=== PATIENT | female | born 1975 | race Caucasian/White ===

== ENCOUNTER 2020-04-23 12:11 | Outpatient (REF) | payer OTHER, SELFPAY ==
[2020-04-23 15:54] LABS: Alanine Aminotransferase 18 U/L (0-31); Albumin Level 4.1 g/dL (3.5-5.0); Alkaline Phosphatase 54 U/L (39-117); Anion Gap 11 (12-20); Aspartate Amino Transferase 19 U/L (5-31); Bilirubin Total 0.7 mg/dL (0.0-1.0); Blood Urea Nitrogen 16 mg/dL (9-16); Calcium 8.4 mg/dL (8.4-10.2); Carbon Dioxide 24 mmol/L (22-29); Chloride 107 mmol/L (96-108); Cholesterol 236 mg/dL; Estimated Glomerular Filt Rate > 60; Glucose Random 85 mg/dL (60-115); HDL Cholesterol 66 mg/dL; LDL Cholesterol Calculated 147 mg/dl; Sodium 137 mmol/L (135-145); Total Protein 7.3 g/dL (6.5-8.0); Triglycerides 118 mg/dL
[2020-04-23 16:11] LABS: TSH reflex Free T4 0.39 mIU/mL (0.32-4.0)
[2020-04-23 16:18] LABS: Creatinine Urine 54.79 mg/dL; Microalbumin Urine < 5.0 mg/L
[2020-04-24 09:17] LABS: LDL Cholesterol Direct 153 mg/dL (<100)
== END 2020-04-23 12:12 | disposition home or self-care (01) ==
LOC: HO.WFDLDS 12:11
PROVIDERS: Visit Provider Family Medicine
DX: Z00.00 Encounter for general adult medical examination without abnormal findings (principal); R03.0 Elevated blood-pressure reading, without diagnosis of hypertension; E78.5 Hyperlipidemia, unspecified
CPT/HCPCS: 80053; 80061; 82043; 83721; 84443

== ENCOUNTER 2020-05-25 17:11 | Outpatient (REF) | payer OTHER, SELFPAY | END 2020-05-25 17:12 | disposition home or self-care (01) | LOC: HO.LAB 17:11 | PROVIDERS: Visit Provider Internal Medicine | DX: Z20.828 Contact with and (suspected) exposure to other viral communicable diseases (principal) | CPT/HCPCS: C9803; U0003 ==

== ENCOUNTER 2020-09-02 18:13 | Outpatient (REF) | payer OTHER, SELFPAY | END 2020-09-02 18:14 | disposition home or self-care (01) | LOC: HO.LNP 18:13 | PROVIDERS: Visit Provider Family Medicine | DX: L02.91 Cutaneous abscess, unspecified (principal) | CPT/HCPCS: 87071; 87205 ==

== ENCOUNTER 2020-09-09 08:11 | Outpatient (RCR) | payer OTHER, SELFPAY | END 2020-09-15 09:45 | disposition home or self-care (01) | LOC: HO.WCC 08:11 | PROVIDERS: PCP Family Medicine; Visit Provider Surgery | DX: Z09 Encounter for follow-up examination after completed treatment for conditions other than malignant neoplasm (principal); L73.2 Hidradenitis suppurativa | CPT/HCPCS: 99212 ==

== ENCOUNTER 2020-12-14 19:02 | Outpatient (REF) | payer OTHER, SELFPAY ==
[2020-12-14 19:39] LABS: Amphetamine Screen Urine Not Detected (Not Detect); Barbiturates, Urine Not Detected (Not Detect); Benzodiazepines Screen Urine POSITIVE (Not Detect); Cannabinoid Screen Urine POSITIVE (Not Detect); Cocaine Screen Urine POSITIVE (Not Detect); Opiate Screen Urine Not Detected (Not Detect); Phencyclidine Screen Urine Not Detected (Not Detect)
== END 2020-12-14 19:03 | disposition home or self-care (01) ==
LOC: HO.LNP 19:02
PROVIDERS: Visit Provider Family Medicine
DX: F41.8 Other specified anxiety disorders (principal); G89.29 Other chronic pain; Z20.822 Contact with and (suspected) exposure to COVID-19
CPT/HCPCS: 80307; 80364; 80365; U0003; U0005

== ENCOUNTER 2021-01-05 13:27 | Outpatient (REF) | payer OTHER, SELFPAY ==
[2021-01-05 14:25] LABS: Amphetamine Screen Urine Not Detected (Not Detect); Barbiturates, Urine Not Detected (Not Detect); Benzodiazepines Screen Urine POSITIVE (Not Detect); Cannabinoid Screen Urine POSITIVE (Not Detect); Cocaine Screen Urine POSITIVE (Not Detect); Opiate Screen Urine POSITIVE (Not Detect); Phencyclidine Screen Urine Not Detected (Not Detect)
== END 2021-01-05 13:28 | disposition home or self-care (01) ==
LOC: HO.LNP 13:27
PROVIDERS: Visit Provider Family Medicine
DX: G89.29 Other chronic pain (principal)
CPT/HCPCS: 80307; 80353; 80364; 80365

== ENCOUNTER 2021-10-05 15:34 | Emergency (ER) | payer OTHER, SELFPAY ==
--- NOTE | ~2021-10-05 | XR_ITS ---
EXAMINATION: CHEST RADIOGRAPH, RIGHT ELBOW, LEFT FOOT CLINICAL INFORMATION: Fall with right elbow pain and left foot swelling COMPARISON: None TECHNIQUE: 2 view chest, 3 views right elbow, 3 views left foot FINDINGS: No significant abnormality is seen involving the heart, lungs, mediastinum or bony thorax. No bone, joint or soft tissue abnormality is seen right elbow. No significant bone, joint or soft tissue abnormality is seen involving the left foot. A plantar calcaneal spur is present. XR/XR elbow RT min 3V IMPRESSION: No significant abnormalities are seen. No evidence of a traumatic osseous injury.
--- NOTE | ~2021-10-05 | XR_ITS ---
EXAMINATION: CHEST RADIOGRAPH, RIGHT ELBOW, LEFT FOOT CLINICAL INFORMATION: Fall with right elbow pain and left foot swelling COMPARISON: None TECHNIQUE: 2 view chest, 3 views right elbow, 3 views left foot FINDINGS: No significant abnormality is seen involving the heart, lungs, mediastinum or bony thorax. No bone, joint or soft tissue abnormality is seen right elbow. No significant bone, joint or soft tissue abnormality is seen involving the left foot. A plantar calcaneal spur is present. XR/XR chest 2V IMPRESSION: No significant abnormalities are seen. No evidence of a traumatic osseous injury.
--- NOTE | ~2021-10-05 | CT_ITS ---
EXAMINATION: CT HEAD W/O IV CONTRAST CT CERVICAL SPINE W/O IV CONTRAST CLINICAL INFORMATION: History of fall with loss of consciousness. COMPARISON: MRI cervical spine from 09/04/2018. TECHNIQUE: Head - Contiguous axial imaging of the head was performed from the skull base to the vertex without the administration of intravenous contrast, and axial images are reconstructed at 2 mm and 5 mm slice thickness. Cervical spine - A volumetric, helical CT acquisition of the cervical spine was obtained without contrast; in addition to the standard set of axial images, multiplanar reformatted images were provided in the coronal and sagittal imaging planes. This CT examination was performed using dose optimization techniques as appropriate, variously including the following: *Automated exposure control *Adjustment of mA and/or kV according to patient size (this includes techniques or standardized protocols for targeted exams where dose is matched to indication/reason for exam; i.e. extremities or head) *Use of iterative reconstruction technique DLP: 1475 mGy-cm (total) FINDINGS: HEAD: No evidence of intracranial hemorrhage, major vascular territory infarction, focal mass effect or midline shift. Sanchez to white matter differentiation is preserved. The ventricles have normal size and configuration. No extra-axial fluid collections. The calvarium is intact and the mastoid air cells and middle ear cavities are clear. The temporomandibular joints are unremarkable. The visualized orbits and globes are intact. Incidentally noted is mucosal thickening of ethmoid air cells and of the partially visualized maxillary sinuses. There are frothy secretions within the right maxillary sinus. CERVICAL SPINE: The craniocervical junction is normal. The occipital condyles, dens and atlantodental articulation are intact. The vertebral body heights and alignment are maintained. No fractures in the anterior or posterior elements. No prevertebral soft tissue swelling. [id number] degenerative disc space loss, vertebral osteophyte formation and minimal retrolisthesis at C4-C5. The small posterior disc osteophyte complex at C4-C5 does not significantly narrow the central spinal canal. Mild bilateral neural foraminal stenosis is present at C4-C5. The C5-C6 disc space is maintained. Mild discovertebral degenerative change is noted at C6-C7. No spinal hematoma. The visualized lung apices and thyroid gland are unremarkable. CT/CT cervical spine wo con IMPRESSION: * No intracranial hemorrhage or other acute intracranial pathology. * No fracture or malalignment in the degenerated cervical spine.
--- NOTE | ~2021-10-05 | XR_ITS ---
EXAMINATION: CHEST RADIOGRAPH, RIGHT ELBOW, LEFT FOOT CLINICAL INFORMATION: Fall with right elbow pain and left foot swelling COMPARISON: None TECHNIQUE: 2 view chest, 3 views right elbow, 3 views left foot FINDINGS: No significant abnormality is seen involving the heart, lungs, mediastinum or bony thorax. No bone, joint or soft tissue abnormality is seen right elbow. No significant bone, joint or soft tissue abnormality is seen involving the left foot. A plantar calcaneal spur is present. XR/XR foot LT min 3V IMPRESSION: No significant abnormalities are seen. No evidence of a traumatic osseous injury.
--- NOTE | ~2021-10-05 | CT_ITS ---
EXAMINATION: CT CHEST, ABDOMEN AND PELVIS WITHOUT CONTRAST CLINICAL INFORMATION: Reason for Exam fall down stairs. Hip pain. Hip fractures? COMPARISON: No pertinent prior studies are available for comparison. TECHNIQUE: Multidetector volumetric imaging was performed from the thoracic inlet through the pubic symphysis without IV contrast. Sagittal and coronal reformatted images were obtained on the technologist's workstation. This CT examination was performed using dose optimization techniques as appropriate, variously including the following: *Automated exposure control *Adjustment of mA and/or kV according to patient size (this includes techniques or standardized protocols for targeted exams where dose is matched to indication/reason for exam; i.e. extremities or head) *Use of iterative reconstruction technique DLP: 336 mGy-cm FINDINGS: This study without contrast limits evaluation of solid organs. CHEST: Lung: A 3 mm right upper lobe subpleural lung nodule is present (30:176). The lungs are otherwise clear without focal worrisome opacity. Mediastinum: The mediastinum is normal. The central vascular structures are unremarkable. No hilar or mediastinal lymphadenopathy. Pericardium/Pleura: No significant effusion. No pleural mass or thickening. Chest Wall/Axilla: Unremarkable ABDOMEN/PELVIS: Peritoneal Space: No significant free air or free fluid identified. Liver, Gallbladder, Biliary Tree: The liver is normal in size, shape, and attenuation. No focal hepatic lesion or biliary ductal dilatation is present. The gallbladder is unremarkable with no evidence of radiopaque gallstones, gallbladder wall thickening, or obvious pericholecystic inflammatory changes. Pancreas: Unremarkable Spleen: Unremarkable Adrenal Glands: Unremarkable Kidneys and Ureters: The kidneys are normal in size, shape, and attenuation. No hydronephrosis, hydroureter, or calculi seen. No perinephric stranding. Bladder: Unremarkable Gastrointestinal Tract: The small and large bowel are unremarkable. The appendix is mildly dilated at 9 mm and contains contrast media. There is no evidence of appendicitis.. Abdominal Wall: No significant hernia is appreciated. Lymph Nodes: No lymphadenopathy. Vascular: The aorta appears normal.. The IVC appears unremarkable. PELVIC VISCERA: Unremarkable OSSEUS STRUCTURES: Mild degenerative changes are noted in the spine. No bony destructive lesions are seen. Scattered rounded sclerotic densities are seen in the pelvis consistent with bone islands. No hip or pelvic fracture is seen. CT/CT abdomen pelvis wo con IMPRESSION: No evidence of a significant traumatic injury chest, abdomen or pelvis after the patient's fall. Incidental note made of a 3 mm right upper lobe pulmonary nodule which probably needs no further follow-up. 2017 Fleischner Society Recommendations for Lung Nodule(s): Follow-Up based on size (average of long- and short-axis diameters). Use most suspicious nodule for followup. Single Solid low risk nodule < 6 mm: No routine follow-up imaging is recommended in low risk and high risk patients. These guidelines do not apply to patients younger than 35 years, immunocompromised patients, and patients with cancer. F/u in patients with significant comorbidities as clinically warranted. For lung cancer screening, adhere to Lung-RADS guidelines. Reference: Radiology. 2017 [place]; 284(1):228-243 Fleischner guidelines were followed.
[2021-10-05 17:18] VITALS: BP 182/104; PULSE 107; RESP 36; TEMP 36.4; O2SAT 96; BMI 18.6
[2021-10-05 17:35] VITALS: PULSE 99; RESP 22; O2SAT 97
[2021-10-05] MEDS: Albuterol Sulfate 90 MCG 8 GM INHALER 2 PUFF INHALE (17:35)
[2021-10-05 17:56] VITALS: BP 149/71; PULSE 86; RESP 16; TEMP 37.1; O2SAT 99
--- NOTE | 2021-10-05 18:17 | PC.NURSE ---
PT WAS GIVEN INHALER BY RESP IN TRIAGE. PT BROUGHT TO [facility] [place]. VERY SLEEPY. RESP UNLABORED. WENT TO RADIOLOGY AND IS BACK NOW. PT AWAKE AND TALKING AT THIS TIME.
--- NOTE | 2021-10-05 18:43 | ED_ITS ---
HPI - Asthma General Chief Complaint: Asthma Stated Complaint: fall/head INJ Time Seen by Provider: 10/05/21 18:22 Source: patient Mode of arrival: ambulatory Limitations: no limitations History of Present Illness HPI Narrative: 46-year-old female history of COPD oxygen dependent 2 L and hyperlipidemia presents to the ED for fall. Patient states this morning around 04:00am she was going down the stairs with slippers and she slipped and loss of footing which caused her to roll down the stairs and hit head. Patient states he did lose consciousness and then woke up herself. Patient states she had mild bleeding on posterior scalp. Patient states headache, bilateral rib pain, left foot pain, and right elbow pain. Patient states while waiting in the room she had mild asthma COPD exacerbation but it resolved after being given 8 puffs of albuterol inhaler in ED triage. Related Data Previous Rx's Medication Instructions Recorded lidocaine 5 % topical patch 1 patch TOPICAL DAILY 90 Days #30 04/23/20 (Lidoderm) ea pravastatin 20 mg tablet 20 mg PO DAILY 90 Days #90 tab 04/23/20 cephalexin 500 mg tablet 500 mg PO Q12H 10 Days #20 tab 09/02/20 miscellaneous medical supply #1 ea 09/15/20 bupropion HCl 150 mg tablet,12 hr 150 mg PO BID 90 Days #180 cap 09/30/20 sustained-release azithromycin 250 mg tablet See Rx Instructions PO .COMPLEX 5 12/14/20 (Zithromax Z-Jules) Days #6 tab Ventolin HFA 90 mcg/actuation 2 puff PO Q6H PRN 30 Days #18 g NS 01/05/21 aerosol inhaler (albuterol sulfate) clonidine HCl 0.1 mg tablet 0.1 mg PO TID 90 Days #270 tab 01/05/21 miscellaneous medical supply #1 ea 01/05/21 crutches (pair of crutches) #1 ea 04/06/21 ipratropium 0.5 mg-albuterol 3 mg 3 ml INHALATION Q4-6H PRN 30 Days 04/06/21 (2.5 mg base)/3 mL nebulization #180 ml soln diphenhydramine HCl 50 mg capsule 50 mg PO Q6H PRN #120 cap 05/09/21 ibuprofen 800 mg tablet (IBU) 800 mg PO TID PRN 90 Days #270 tab 05/09/21 topiramate 100 mg tablet 100 mg PO BID 90 Days #180 tab 05/09/21 fluticasone propionate 50 1 inh PO Q12H #180 cap 07/13/21 mcg/actuation blister powder for inhalation (Flovent Diskus) naproxen 500 mg tablet 500 mg PO BID PRN 10 Days #20 tab 10/05/21 prednisone 20 mg tablet 40 mg PO DAILY 5 Days #10 tab 10/05/21 Allergies Allergy/AdvReac Type Severity Reaction Status Date / Time seafood Allergy Unknown difficulty Verified 10/05/21 17:28 breathing SEASONAL ALLERGIES Allergy Unknown ITCHY EYES Uncoded 03/11/20 16:48 Review of Systems Review of Systems: Phone. Loss of consciousness. Right elbow, left foot, and bilateral rib pain. Yes all other systems are reviewed and are negative [facility] Past Medical History Medical History (Updated 10/06/21 @ 00:02 by Rony Santana) Asthma Asthma Surgical History History of carpal tunnel release History of hernia repair History of rotator cuff surgery History of shoulder surgery Family History Family History Father Diabetes mellitus Unknown family medical history Mother Unknown family medical history HTN (hypertension) Brother No problems noted. Brother No problems noted. Brother No problems noted. Daughter No problems noted. Sister No problems noted. Sister No problems noted. Sister No problems noted. Sister No problems noted. Sister No problems noted. Other Mental health disorder Substance abuse Social History Social History Housing: Other Alcohol intake: current Alcohol intake frequency: holidays/special occasions only Patient Tobacco Use Status: Never used Tobacco Advance Directives: No Advance Directives Information Provided: No service: No Current occupational status: employed Physical Exam Vital Signs: Vital Signs: Last Vital Signs Temp 98.2 F 10/05/21 21:13 Pulse 86 10/05/21 23:15 Resp 18 10/05/21 23:15 BP 135/65 10/05/21 21:13 Pulse Ox 97 10/05/21 21:13 BMI result Body Mass Index 18.6 Const: General: cooperative, healthy appearing, comfortable, no acute distress, well developed, alert, awake and Physically active Orie ntation/consciousness: patient oriented x3 HEENT: Head: Yes normal to inspection, Yes No palpable skull fracture present, Yes normocephalic and Yes atraumatic Head images: 1. Positive for abrasion. Negative for any active bleeding. Eyes: General: appearance normal, both eyes and all related structures Neck: Neck: Yes normal visual inspection, Yes full ROM, Yes no lymphadenopathy, Yes no meningeal signs, Yes trachea midline, Yes supple, No anterior neck swelling and No tender Chest: Chest palpation & inspection: normal inspection of the chest Chest/axillae images: 1. Positive for tenderness on palpation. Negative for any ecchymosis, crepitus, or deformity. Negative for any erythema. 2. Positive for tenderness on palpation. Negative for any ecchymosis, crepitus, or deformity. Negative for any erythema. Resp: Effort & Inspection: normal respiratory effort and able to speak in complete sentences Auscultation: wheezes expiratory wheezes and throughout Cardio: Jugular venous distension: no JVD Heart sounds: S1 normal heart sound present and S2 normal heart sound present GI: Inspection: Yes normal to inspection and No abdominal wall ecchymosis Palpation (GI): Soft to palpation, not firm, nontender, no guarding and not rigid : General: No CVA tenderness and Yes no CVA tenderness Back/Spine/Pelvis: Back: no CVA tenderness, No CVA tenderness, No ecchymosis and No back tenderness Skin: General skin exam: no rashes or lesions noted and elasticity normal Neuro: General: patient oriented x3, gait normal and no meningeal signs Cranial nerves: Yes CN's II-XII intact bilaterally Extrem: General: Yes normal to inspection and Yes full ROM Elbow/forearm/wrist images: 1. Mild tenderness on palpation. Negative for any ecchymosis, erythema, deformity, or crepitus. Motor/nose/vascular exam intact Ankle/foot/toe images: 1. Tenderness on palpation with slight swelling. Mild ecchymosis. Negative for deformity or crepitus. Patient has complete range of motion of foot. Motor/neuro/vascular exam intact Psych: Appearance: grossly normal, well kempt and not disheveled Course Course Course Narrative: Patient had x-rays initially ordered in triage. Will order head CT cervical spine due to patient stating hitting head and loss of consciousness. Patient no longer wants any nebulizer treatment. Patient states breathing feels better and would like steroids. Patient vital signs improved. Reevaluation(s) Reevaluation #1: Patient images are normal. Patient feels better after receiving MDI albuterol 8 puffs and steroids. Patient will be discharged back home by ambulance due to her being C O2 dependent on 2 L. patient walked on her own. Time: 21:59 MDM - Asthma MDM Narrative Medical decision making narrative: Fall. Asthma exacerbation Discharge Plan Discharge Clinical Impression: Head injury, Fall, Asthma Patient Disposition: Home, Self-Care Instructions: Asthma (DC), Head Injury (ED), Contusion in Adults (ED), Fall Prevention (ED) Additional Instructions: Images came back normal. Will be discharged with pain medication and steroids. Return to the ED for any nausea, vomiting, worsening headache, chest pain, shortness of breath, rectal bleeding, vomiting blood, blood in stool, blood in urine, pain in extremities, swelling, or any other concerning symptoms. Prescriptions: New naproxen 500 mg tablet 500 mg PO BID PRN (Reason: pain) 10 Days Qty: 20 0RF prednisone 20 mg tablet 40 mg PO DAILY 5 Days Qty: 10 0RF No Action pravastatin 20 mg tablet 20 mg PO DAILY 90 Days Qty: 90 4RF lidocaine [Lidoderm] 5 % adhesive patch,medicated 1 patch topical DAILY 90 Days Qty: 30 4RF Rx Instructions: leave on most painful area for up to 12 hrs (DME) miscellaneous medical supply [facility] [place], [place] See Rx Instructions .ROUTE .MEDSUPPLY Qty: 1 0RF Rx Instructions: Shower bar/hand rail. As directed, daily, 999days/life time. bupropion HCl 150 mg tablet sustained-release 12 hr 150 mg PO BID 90 Days Qty: 180 1RF (DME) pair of crutches Kit See Rx Instructions .ROUTE .MEDSUPPLY Qty: 1 0RF Rx Instructions: Forearm Crutches. Daily, As directed. 999 days. 1 Pair topiramate 100 mg tablet 100 mg PO BID 90 Days Qty: 180 4RF diphenhydramine HCl 50 mg capsule 50 mg PO Q6H PRN (Reason: for allergies) Qty: 120 1RF ibuprofen [IBU] 800 mg tablet 800 mg PO TID PRN (Reason: pain) 90 Days Qty: 270 4RF Flovent Diskus 50 mcg/actuation blister with device 1 inh PO Q12H Qty: 180 1RF cephalexin 500 mg tablet 500 mg PO Q12H 10 Days Qty: 20 0RF (DME) miscellaneous medical supply Misc See Rx Instructions .ROUTE .MEDSUPPLY Qty: 1 0RF Rx Instructions: Arm Crutches. Daily As directed, 999days/lifetime. Dispense 1 pair clonidine HCl 0.1 mg tablet 0.1 mg PO TID 90 Days Qty: 270 4RF albuterol sulfate [Ventolin HFA] 90 mcg/actuation HFA aerosol inhaler 2 puff PO Q6H PRN (Reason: shortness of breath or wheezing) 30 Days Qty: 18 4RF azithromycin [Zithromax Z-Jules] 250 mg tablet See Rx Instructions PO .COMPLEX 5 Days Qty: 6 0RF Rx Instructions: take 500 mg today (day 1), then 250 mg for 4 days (days 2-5) PO ipratropium-albuterol 0.5 mg-3 mg(2.5 mg base)/3 mL solution for nebulization 3 ml inhalation Q4-6H PRN (Reason: for dyspnea) 30 Days Qty: 180 4RF Interventions: ED Discharge Assessment Last Done: 10/05/21 23:54 Discharge Date/Time: 10/05/21 23:57 Print Language: Australian
[2021-10-05] MEDS: predniSONE 20 MG TABLET 60 MG PO (19:21)
--- NOTE | 2021-10-05 19:24 | PC.NURSE ---
med with prednisone as ordered.pt remains sleepy but easily aroused by voice.
[2021-10-05 19:55] VITALS: BP 148/84; PULSE 78; RESP 17; TEMP 36.6; O2SAT 98
[2021-10-05 21:13] VITALS: BP 135/65; PULSE 83; RESP 16; TEMP 36.8; O2SAT 97
[2021-10-05] MEDS: Ibuprofen 800 MG TABLET PO (22:56)
[2021-10-05] MEDS: guaiFENesin 200 MG/10 ML 10 ML LIQUID PO (22:57)
[2021-10-05 23:15] VITALS: PULSE 86; RESP 18; O2SAT 97
[2021-10-05] MEDS: Albuterol/Iprat 2.5/0.5MG 3 ML AMPUL.NEB INHALE (23:15)
== END 2021-10-05 23:57 | disposition home or self-care (01) ==
PROVIDERS: Emergency Provider Emergency Medicine; PCP Family Medicine
DX: J44.1 Chronic obstructive pulmonary disease with (acute) exacerbation (principal); Z99.81 Dependence on supplemental oxygen; R51.9 Headache, unspecified; M79.672 Pain in left foot; M54.2 Cervicalgia; M25.521 Pain in right elbow; M54.50 Low back pain, unspecified; Z79.899 Other long term (current) drug therapy
CPT/HCPCS: 70450; 71046; 71250; 72125; 73080; 73630; 74176; 94640; 99284; 99285

== ENCOUNTER 2021-11-23 21:58 | Emergency (ER) | payer OTHER, SELFPAY ==
--- NOTE | ~2021-11-23 | CT_ITS ---
EXAMINATION: CT ABDOMEN AND PELVIS WITHOUT CONTRAST CLINICAL INFORMATION: Epigastric and left lower quadrant pain COMPARISON: 10/05/2021 TECHNIQUE: Multidetector volumetric imaging was performed from the superior aspect of the liver through the pubic symphysis. Sagittal and coronal reformatted images were obtained on the technologist's workstation. This CT examination was performed using dose optimization techniques as appropriate, variously including the following: *Automated exposure control *Adjustment of mA and/or kV according to patient size (this includes techniques or standardized protocols for targeted exams where dose is matched to indication/reason for exam; i.e. extremities or head) *Use of iterative reconstruction technique DLP: 380 mGy-cm FINDINGS: LUNG BASES: The visualized lung bases are unremarkable. LIVER, GALLBLADDER, AND BILIARY TREE: The liver is normal in size, shape, and attenuation. Focal hypoattenuation near the falciform ligament suggests focal fatty infiltration. No biliary ductal dilatation is present. The gallbladder is unremarkable with no evidence of radiopaque gallstones, gallbladder wall thickening, or obvious pericholecystic inflammatory changes. PANCREAS: Unremarkable. SPLEEN: Unremarkable. ADRENAL GLANDS: Unremarkable. KIDNEYS AND URETERS: The kidneys are normal in size, shape, and attenuation. No hydronephrosis, hydroureter, or calculi seen. No perinephric stranding. BLADDER: Unremarkable. GASTROINTESTINAL TRACT: No evidence of bowel obstruction. Sigmoid colon diverticulosis is noted. No significant bowel wall thickening is seen. Dilated appendix is again noted to approximately 9 mm, containing hyperdense material similar to prior; appreciable associated inflammatory change. No free fluid or free air is seen. ABDOMINAL WALL: No significant hernia is appreciated. LYMPH NODES: No lymphadenopathy is seen, though assessment is limited in the absence of intravenous contrast. VASCULAR: Unremarkable. PELVIC VISCERA: Unremarkable. OSSEOUS STRUCTURES: There is degenerative disc disease at L5-S1. CT/CT abdomen pelvis wo con IMPRESSION: No acute findings identified in the abdomen/pelvis. Dilated, hyperdense appendix again noted without appreciable surrounding inflammation, similar to prior.
[2021-11-23 22:20] VITALS: BP 139/73; PULSE 74; RESP 18; TEMP 37; O2SAT 100; BMI 22.4
[2021-11-23] MEDS: Ondansetron ODT 4 MG TAB.RAPDIS TRANSLINGU (22:29)
[2021-11-23 23:09] LABS: MANUAL DIFF FLAG NO
[2021-11-23 23:11] LABS: Basophils Absolute Auto 0.1 X10*3/uL (0.0-0.2); Basophils Percent Auto 0.8 % (0-2); Eosinophils Absolute Auto 0.3 X10*3/uL (0.0-0.4); Eosinophils Percent Auto 3.2 % (0-4); Hematocrit 40.5 % (37.0-47.0); Hemoglobin 13.3 g/dl (12.0-16.0); Imm Gran Abs Auto 0.01 X10*3/uL (0.00-0.03); Imm Gran Pct Auto 0.1 % (0.0-0.4); Lymphocytes Absolute Auto 1.8 X10*3/uL (1.2-4.9); Lymphocytes Percent Auto 19.4 % (20-40); Mean Corpuscular HGB Conc 32.8 g/dl (31.0-35.0); Mean Corpuscular Hemoglobin 30.1 pg (27.0-33.0); Mean Corpuscular Volume 91.6 fL (80.0-98.0); Mean Platelet Volume 10.5 fL (9.4-12.3); Monocytes Absolute Auto 0.5 X10*3/uL (0.1-1.2); Monocytes Percent Auto 5.8 % (2-11); Neutrophils Absolute Auto 6.5 x10*3/uL (2.0-8.3); Neutrophils Percent Auto 70.7 % (45-73); Platelet Count 307 X10*3/uL (160-400); Red Blood Count 4.42 X10*6/uL (4.20-5.50); Red Cell Distribution Width 15.1 % (11.0-16.0); White Blood Count 9.1 X10*3/uL (4.8-10.8)
--- NOTE | 2021-11-23 23:22 | ED_ITS ---
HPI - Abdominal Pain General Chief Complaint: Abdominal Pain <SUHA Serna Last Filed: 11/24/21 02:36> Stated Complaint: ? food poisoning,vomiting <SUHA Serna Last Filed: 11/24/21 02:36> Time Seen by Provider: 11/23/21 23:03 <SUHA Serna Last Filed: 11/24/21 02:36> Source: patient <SUHA Serna Last Filed: 11/24/21 02:36> Mode of arrival: ambulatory <SUHA Serna Last Filed: 11/24/21 02:36> Limitations: no limitations <SUHA Serna Last Filed: 11/24/21 02:36> History of Present Illness HPI narrative: 46-year-old female history of PTSD, hyperlipidemia, depression presents the emergency department with complaints of nausea, vomiting and epigastric pain x1 day status post eating moldy bread. Patient tells me that she has had 5 episodes of vomiting since she ate this bread. She reports discomfort in the epigastric region that is intermittent in nature, described as a burning sensati on. Patient tells me that the pain it stays in her epigastric region, no radiation. She tells me that they gave her Zofran and she is feeling much better. Patient denies fevers, chills, chest pain, shortness of breath, hematemesis, diarrhea, changes in urination, back pain, changes in bowel habits <SUHA Serna Last Filed: 11/24/21 02:36> MD elicited complaint: abdominal pain <SUHA Serna Last Filed: 11/24/21 02:36> Pertinent past history: none <SUHA Serna Last Filed: 11/24/21 02:36> Onset (ago): day(s) (1) <SUHA Serna Last Filed: 11/24/21 02:36> Pain Consistency: intermittent <SUHA Serna Last Filed: 11/24/21 02:36> Location: epigastric <SUHA Serna Last Filed: 11/24/21 02:36> Severity: moderate <SUHA Serna Last Filed: 11/24/21 02:36> Quality: burning <SUHA Serna Last Filed: 11/24/21 02:36> Radiation: none <SUHA Serna Last Filed: 11/24/21 02:36> Migration to: no migration <SUHA Serna Last Filed: 11/24/21 02:36> Exacerbating factors: nothing <SUHA Serna Last Filed: 11/24/21 02:36> Relieving factors: nothing <SUHA Serna Last Filed: 11/24/21 02:36> Associated symptoms: nausea and vomiting <SUHA Serna Last Filed: 11/24/21 02:36> Related Data Home Medications: Previous Rx's Medication Instructions Recorded lidocaine 5 % topical patch 1 patch TOPICAL DAILY 90 Days #30 04/23/20 (Lidoderm) ea pravastatin 20 mg tablet 20 mg PO DAILY 90 Days #90 tab 04/23/20 cephalexin 500 mg tablet 500 mg PO Q12H 10 Days #20 tab 09/02/20 miscellaneous medical supply #1 ea 09/15/20 bupropion HCl 150 mg tablet,12 hr 150 mg PO BID 90 Days #180 cap 09/30/20 sustained-release azithromycin 250 mg tablet See Rx Instructions PO .COMPLEX 5 12/14/20 (Zithromax Z-Jules) Days #6 tab Ventolin HFA 90 mcg/actuation 2 puff PO Q6H PRN 30 Days #18 g NS 01/05/21 aerosol inhaler (albuterol sulfate) clonidine HCl 0.1 mg tablet 0.1 mg PO TID 90 Days #270 tab 01/05/21 miscellaneous medical supply #1 ea 01/05/21 crutches (pair of crutches) #1 ea 04/06/21 ipratropium 0.5 mg-albuterol 3 mg 3 ml INHALATION Q4-6H PRN 30 Days 04/06/21 (2.5 mg base)/3 mL nebulization #180 ml soln diphenhydramine HCl 50 mg capsule 50 mg PO Q6H PRN #120 cap 05/09/21 ibuprofen 800 mg tablet (IBU) 800 mg PO TID PRN 90 Days #270 tab 05/09/21 topiramate 100 mg tablet 100 mg PO BID 90 Days #180 tab 05/09/21 fluticasone propionate 50 1 inh PO Q12H #180 cap 07/13/21 mcg/actuation blister powder for inhalation (Flovent Diskus) naproxen 500 mg tablet 500 mg PO BID PRN 10 Days #20 tab 10/05/21 prednisone 20 mg tablet 40 mg PO DAILY 5 Days #10 tab 10/05/21 ondansetron 4 mg disintegrating 4 mg PO ONCE PRN #10 tab 11/23/21 tablet <SUHA Serna Last Filed: 11/24/21 02:36> Allergies/Adverse Reactions: Allergies Allergy/AdvReac Type Severity Reaction Status Date / Time seafood Allergy Unknown difficulty Verified 10/05/21 17:28 breathing SEASONAL ALLERGIES Allergy Unknown ITCHY EYES Uncoded 03/11/20 16:48 <SUHA Serna Last Filed: 11/24/21 02:36> Review of Systems Review of Systems Constitutional : No Weight loss, No Fever, No Chills, No Fatigue, No Malaise ENT/Mouth : No sore throat, No Rhinorrhea Eyes: No Eye Pain, No Swelling, No Redness Cardiovascular : No Chest Pain, No SOB, No Dyspnea on Exertion, No Orthopnea, No Edema, No Palpitations Respiratory : No Cough, No Sputum, No Wheezing Gastrointestinal : + Nausea, + Vomiting, No Diarrhea, No Constipation, + abdominal Pain, No Hematochezia, No Melena Genitourinary : No Dysuria, No Urinary Frequency, No Hematuria, Musculoskeletal : No joint pain, No Myalgias, No Joint Swelling Skin : No Skin Lesions, No rash Neuro : No Weakness, No Numbness, No Dizziness, No Headache Psych : No Anxiety/Panic, No Depression All other systems reviewed and are negative <SUHA Serna Last Filed: 11/24/21 02:36> Yes all other systems are reviewed and are negative <SUHA Serna Last Filed: 11/24/21 02:36> [facility] Past Medical History Attestation statement: The following information was validated with the patient. <SUHA Serna - Last Filed: 11/24/21 02:36> Source: old records reviewed and nursing notes reviewed <SUHA Serna - Last Filed: 11/24/21 02:36> Medical History: Medical History Asthma Asthma <SUHA Serna - Last Filed: 11/24/21 02:36> Surgical History: Surgical History History of carpal tunnel release History of hernia repair History of rotator cuff surgery History of shoulder surgery <SUHA Serna - Last Filed: 11/24/21 02:36> Family History Family History: Family History Father Diabetes mellitus Unknown family medical history Mother Unknown family medical history HTN (hypertension) Brother No problems noted. Brother No problems noted. Brother No problems noted. Daughter No problems noted. Sister No problems noted. Sister No problems noted. Sister No problems noted. Sister No problems noted. Sister No problems noted. Other Mental health disorder Substance abuse <SUHA Serna - Last Filed: 11/24/21 02:36> Social History Social History: Social History Housing: Other Alcohol intake: never Patient Tobacco Use Status: Never used Tobacco Use of substances other than those prescribed or required for medical reasons: Yes Substance Use Type: Opiates Substance Use Frequency: Chronic Longstanding Advance Directives: No Advance Directives Information Provided: No Patient : No service: No Current occupational status: employed <SUHA Serna - Last Filed: 11/24/21 02:36> Physical Exam ED Vital Signs: Vital Signs - 24 hr 11/23/21 22:20 11/24/21 02:44 Temperature 98.6 F Pulse Rate 74 82 Respiratory Rate 18 18 Blood Pressure 139/73 132/78 Pulse Oximetry 100 99 BMI result Body Mass Index 22.4 vss <SUHA Serna Last Filed: 11/24/21 02:36> Appearance: Alert.? Oriented X3.? No acute distress.? Head: Normocephalic, atraumatic, no step-offs or deformities Eyes: Pupils equal, round and reactive to light.? ENT: Pharynx normal.? Neck: Normal inspection.? Neck supple.? CVS: Normal heart rate and rhythm.? Pulses normal.? Respiratory: No respiratory distress.? Breath sounds normal.? Abdomen: Soft and nontender.? Normoactive bowel sounds Skin: Skin warm and dry.? Normal skin color.? Normal skin turgor.? Extremities: No lower extremity edema.? No calf ttp. 5/5 strength to bilateral upper and lower extremities Back: No midline tenderness, no C-spine tenderness, full range of motion, no CVA tenderness bilaterally Neuro: Oriented X 3.? No motor deficit.? No sensory deficit. CN 2-12 intact <SUHA Serna Last Filed: 11/24/21 02:36> Course Reevaluation(s) Reevaluation #1: CBC within normal limits. Chemistry with no acute findings. Lipase within normal limits unlikely pancreatitis. Patient now complaining of severe abdominal pain, on repeat exam she is tender to the left lower quadrant will rule out diverticulitis with CT of the abdomen and pelvis. This patient was evaluated during a time of global shortage of iodinated contrast media. Based on guidance from the [employer], best practices, and local institutional approaches an alternative path for evaluating and managing the patient may have been employed in order to provide optimal care during this shortage. The current situation has been discussed with the patient. <SUHA Serna Last Filed: 11/24/21 02:36> Time: 00:56 <SUHA Serna Last Filed: 11/24/21 02:36> Reevaluation #2: CT of abdomen and pelvis with No acute findings identified in the abdomen/pelvis. Dilated, hyperdense appendix again noted without appreciable surrounding inflammation, similar to prior. Upon examination patient's pain is to the left lower quadrant, no pain to the right lower quadrant with palpation. At this time very low suspicion for appendicitis. Patient's pain likely secondary to vomiting. Plan at this time is to discharge patient home with strict return precautions. Tolerating p.o. solids and fluids. At this time I feel comfortable discharge home will give her GI information if needed. Comfortable discharge stable vitals patient appears well no acute distress patient is subsided after Toradol and fluids. <SUHA Serna - Last Filed: 11/24/21 02:36> Time: 02:33 <SUHA Serna - Last Filed: 11/24/21 02:36> MDM - Abdominal Pain MDM Narrative Medical decision making narrative: 2300 46-year-old female presents with nausea, vomiting epigastric discomfort x1 day status post eating multi toast. Physical examination benign. Patient's abdomen is soft, nontender nondistended with normoactive bowel sounds. Negative Chin's, Rovsing, obturator, psoas, McBurney's point. Lungs clear. Regular rate and rhythm. Neuro exam is nonfocal. Vital signs stable. No peritoneal signs, no signs of acute abdomen. Based off history and physical examination unlikely cholecystitis or appendicitis. Likely food poisoning. Plan at this time is basic labs, urine. No need for imaging at this time is patient has a soft non tender nondistended abdomen. Will give patient a GI cocktail. <SUHA Serna - Last Filed: 11/24/21 02:36> Medical Records Attestation: I reviewed the patient's medical records. <SUHA Serna - Last Filed: 11/24/21 02:36> Lab Data Attestation: I reviewed the patient's lab results. <SUHA Serna Last Filed: 11/24/21 02:36> Result diagrams: : 11/23/21 23:02 11/23/21 23:02 <SUHA Serna Last Filed: 11/24/21 02:36> Labs: Lab Results 11/23/21 11/23/21 Range/Units 23:02 23:02 WBC 9.1 (4.8-10.8) X10*3/uL RBC 4.42 (4.20-5.50) X10*6/uL Hgb 13.3 (12.0-16.0) g/dl Hct 40.5 (37.0-47.0) % MCV 91.6 (80.0-98.0) fL MCH 30.1 (27.0-33.0) pg MCHC 32.8 (31.0-35.0) g/dl RDW 15.1 (11.0-16.0) % Plt Count 307 (160-400) X10*3/uL MPV 10.5 (9.4-12.3) fL Immature Gran % (Auto) 0.1 (0.0-0.4) % Neut % (Auto) 70.7 (45-73) % Lymph % (Auto) 19.4 L (20-40) % [place] % (Auto) 5.8 (2-11) % Eos % (Auto) 3.2 (0-4) % Baso % (Auto) 0.8 (0-2) % Lymph # (Auto) 1.8 (1.2-4.9) X10*3/uL [place] # (Auto) 0.5 (0.1-1.2) X10*3/uL Eos # (Auto) 0.3 (0.0-0.4) X10*3/uL Baso # (Auto) 0.1 (0.0-0.2) X10*3/uL Abs Immat Gran (auto) 0.01 (0.00-0.03) X10*3/uL Absolute Neuts (auto) 6.5 (2.0-8.3) x10*3/uL Absolute Nucleated RBC 0.000 (0.0-0.012) X10*3/uL Nucleated RBC % (auto) 0.0 (0.0-0.2) /100WBC Sodium 141 (135-145) mmol/L Potassium 3.7 (3.3-5.1) mmol/L Chloride 105 (96-108) mmol/L Carbon Dioxide 27 (22-29) mmol/L Anion Gap 13 (12-20) BUN 17 H (9-16) mg/dL Creatinine 0.79 (0.5-1.4) mg/dL Estim Creat Clear Calc 64.5 Estimated GFR > 60 Random Glucose 94 (60-115) mg/dL Calcium 10.0 D (8.4-10.2) mg/dL Total Bilirubin 0.5 (0.0-1.0) mg/dL Direct Bilirubin 0.2 (0.0-0.5) mg/dL AST 20 (5-31) U/L ALT 18 (0-31) U/L Alkaline Phosphatase 61 (39-117) U/L Total Protein 7.7 (6.5-8.0) g/dL Albumin 4.5 (3.5-5.0) g/dL Lipase 21 (8-78) U/L <SUHA Serna Last Filed: 11/24/21 02:36> Critical Care Time Critical Care Time Critical Care Time: No <SUHA Serna Last Filed: 11/24/21 02:36> Discharge Plan Discharge Clinical Impression: Abdominal pain, Nausea & vomiting <SUHA Serna Last Filed: 11/24/21 02:36> Patient Disposition: Home, Self-Care <SUHA Serna Last Filed: 11/24/21 02:36> Instructions: Acute Nausea and Vomiting (ED), Abdominal Pain (ED) <SUHA Serna Last Filed: 11/24/21 02:36> Additional Instructions: Take your medications as prescribed. If you were prescribed antibiotics today, it is important that you take your medication to their entirety, do not skip any doses, do not finish them early. Follow-up with your primary care provider this week. If pain persists follow-up with gastroenterology. Return to the emergency department with new or worsening symptoms. Such as fevers, chills, chest pain, shortness of breath, nausea, vomiting, dizziness, headache, vision changes, lethargy In case of emergency call 911 Please be advised that you were seen during a time of global shortage of iodina lucrecia contrast media. This means an alternative approach to your diagnosis and treatment may have been employed in order to provide optimal care during the shortage. If you have any worsening symptoms, please go to the nearest emergency department or call [address]/CT abdomen pelvis wo con IMPRESSION: No acute findings identified in the abdomen/pelvis. Dilated, hyperdense appendix again noted without appreciable surrounding inflammation, similar to prior. <SUHA Serna Last Filed: 11/24/21 02:36> Prescriptions: New ondansetron 4 mg tablet,disintegrating 4 mg PO ONCE PRN (Reason: nausea and vomiting) Qty: 10 0RF No Action pravastatin 20 mg tablet 20 mg PO DAILY 90 Days Qty: 90 4RF lidocaine [Lidoderm] 5 % adhesive patch,medicated 1 patch topical DAILY 90 Days Qty: 30 4RF Rx Instructions: leave on most painful area for up to 12 hrs (DME) miscellaneous medical supply [facility] See Rx Instructions .ROUTE .MEDSUPPLY Qty: 1 0RF Rx Instructions: Shower bar/hand rail. As directed, daily, 999days/life time. bupropion HCl 150 mg tablet sustained-release 12 hr 150 mg PO BID 90 Days Qty: 180 1RF (DME) pair of crutches Kit See Rx Instructions .ROUTE .MEDSUPPLY Qty: 1 0RF Rx Instructions: Forearm Crutches. Daily, As directed. 999 days. 1 Pair topiramate 100 mg tablet 100 mg PO BID 90 Days Qty: 180 4RF diphenhydramine HCl 50 mg capsule 50 mg PO Q6H PRN (Reason: for allergies) Qty: 120 1RF ibuprofen [IBU] 800 mg tablet 800 mg PO TID PRN (Reason: pain) 90 Days Qty: 270 4RF Flovent Diskus 50 mcg/actuation blister with device 1 inh PO Q12H Qty: 180 1RF naproxen 500 mg tablet 500 mg PO BID PRN (Reason: pain) 10 Days Qty: 20 0RF prednisone 20 mg tablet 40 mg PO DAILY 5 Days Qty: 10 0RF cephalexin 500 mg tablet 500 mg PO Q12H 10 Days Qty: 20 0RF (DME) miscellaneous medical supply [facility] See Rx Instructions .ROUTE .MEDSUPPLY Qty: 1 0RF Rx Instructions: Arm Crutches. Daily As directed, 999days/lifetime. Dispense 1 pair clonidine HCl 0.1 mg tablet 0.1 mg PO TID 90 Days Qty: 270 4RF albuterol sulfate [Ventolin HFA] 90 mcg/actuation HFA aerosol inhaler 2 puff PO Q6H PRN (Reason: shortness of breath or wheezing) 30 Days Qty: 18 4RF azithromycin [Zithromax Z-Jules] 250 mg tablet See Rx Instructions PO .COMPLEX 5 Days Qty: 6 0RF Rx Instructions: take 500 mg today (day 1), then 250 mg for 4 days (days 2-5) PO ipratropium-albuterol 0.5 mg-3 mg(2.5 mg base)/3 mL solution for nebulization 3 ml inhalation Q4-6H PRN (Reason: for dyspnea) 30 Days Qty: 180 4RF <SUHA Serna - Last Filed: 11/24/21 02:36> Referrals: Omer Miguel [Physician] - 1 week <SUHA Serna - Last Filed: 11/24/21 02:36> Stand Alone Forms: Work/School Release <SUHA Serna - Last Filed: 11/24/21 02:36> Interventions: ED Discharge Assessment Last Done: 11/24/21 03:01 <SUHA Serna - Last Filed: 11/24/21 02:36> Discharge Date/Time: 11/24/21 03:03 <SUHA Serna - Last Filed: 11/24/21 02:36>
[2021-11-23] MEDS: PHENobarb/Hyoscy/Atropine/Scop 10 ML ELIXIR PO (23:28)
[2021-11-23] MEDS: Magnesium Hydrox/Alum Hydrox 30 ML ORAL.SUSP PO (23:28)
[2021-11-23 23:34] LABS: Alanine Aminotransferase 18 U/L (0-31); Albumin Level 4.5 g/dL (3.5-5.0); Alkaline Phosphatase 61 U/L (39-117); Anion Gap 13 (12-20); Aspartate Amino Transferase 20 U/L (5-31); Bilirubin Direct 0.2 mg/dL (0.0-0.5); Bilirubin Total 0.5 mg/dL (0.0-1.0); Blood Urea Nitrogen 17 mg/dL (9-16); Carbon Dioxide 27 mmol/L (22-29); Chloride 105 mmol/L (96-108); Creatinine Clr Calc Pharmacy 64.5; Estimated Glomerular Filt Rate > 60; Glucose Random 94 mg/dL (60-115); Lipase 21 U/L (8-78); Potassium 3.7 mmol/L (3.3-5.1); Sodium 141 mmol/L (135-145)
[2021-11-23 23:53] LABS: Total Protein 7.7 g/dL (6.5-8.0)
[2021-11-24] MEDS: Ketorolac Tromethamine 15 MG/ML VIAL 30 MG IVPUSH (00:24)
[2021-11-24 02:44] VITALS: BP 132/78; PULSE 82; RESP 18; O2SAT 99
== END 2021-11-24 03:03 | disposition home or self-care (01) ==
PROVIDERS: Physician Assistant; Emergency Provider Emergency Medicine; PCP Family Medicine
DX: R10.32 Left lower quadrant pain (principal); R11.2 Nausea with vomiting, unspecified; J45.909 Unspecified asthma, uncomplicated
CPT/HCPCS: 36415; 74176; 80053; 82248; 83690; 85025; 96374; 99284; J1885

== ENCOUNTER 2022-03-14 12:52 | Outpatient (REF) | payer OTHER, SELFPAY ==
[2022-03-15 14:59] LABS: Amphetamine Screen Urine Not Detected (Not Detect); Barbiturates, Urine Not Detected (Not Detect); Benzodiazepines Screen Urine Not Detected (Not Detect); Cannabinoid Screen Urine POSITIVE (Not Detect); Cocaine Screen Urine Not Detected (Not Detect); Fentanyl, urine Not Detected (Not Detect); Opiate Screen Urine Not Detected (Not Detect); Phencyclidine Screen Urine Not Detected (Not Detect)
== END 2022-03-14 12:53 | disposition home or self-care (01) ==
LOC: HO.LNP 12:52
PROVIDERS: Visit Provider Hospitalist
DX: F14.11 Cocaine abuse, in remission (principal)
CPT/HCPCS: 80307

== ENCOUNTER 2022-10-01 23:51 | Emergency (ER) | payer OTHER, SELFPAY ==
--- NOTE | ~2022-10-01 | XR_ITS ---
EXAMINATION: XR CHEST CLINICAL INFORMATION: Shortness of breath. COMPARISON: Chest radiograph 10/05/2021. TECHNIQUE: 2 views of the chest were obtained. FINDINGS: No significant abnormality is noted involving the heart, lungs, mediastinum, bony thorax or soft tissues. XR/XR chest 2V IMPRESSION: Unremarkable examination.
[2022-10-02 00:02] VITALS: BP 140/100; BP 169/87; PULSE 66; PULSE 74; RESP 12; TEMP 36.9; O2SAT 100; O2SAT 99; BMI 25.2
[2022-10-02 00:11] VITALS: BP 169/87; PULSE 66; RESP 12; TEMP 36.9; O2SAT 99
--- NOTE | 2022-10-02 00:14 | PC.NURSE ---
pt states h/o htn as well and has not taken bp medication yet today
--- NOTE | 2022-10-02 00:30 | ECG_ITS ---
Test Reason : SOB Blood Pressure : / mmHG Vent. Rate : 070 BPM Atrial Rate : 070 BPM P-R Int : 124 ms QRS Dur : 086 ms QT Int : 400 ms P-R-T Axes : 065 050 046 degrees QTc Int : 432 ms Normal sinus rhythm with sinus arrhythmia Normal ECG When compared with ECG of 31-OCT-2005 15:20, T wave inversion no longer evident in Inferior leads Referred By: Bulmaro Mcgrath Electronically Signed By:ARAVIND HARDEN MD
[2022-10-02 00:46] VITALS: PULSE 74; RESP 22; O2SAT 99
--- NOTE | 2022-10-02 00:59 | ED_ITS ---
HPI - General Adult General Chief complaint: Dyspnea Stated complaint: Difficulty Breathing for 1 week/CP for 2 hours Time Seen by Provider: 10/02/22 00:06 Source: patient, RN notes reviewed and old records reviewed Mode of arrival: EMS Limitations: no limitations History of Present Illness HPI narrative: 47-year-old female with past medical history significant for asthma, COPD, sleep apnea, dehydration, chronic pain syndrome presents for evaluation of shortness of breath, flu-like symptoms. Patient reports that she has had 2 weeks of chest congestion, cough, shortness of breath. She reports over the last 2 days she has had increasing sinus congestion, has been developing right ear pain. Her last for hours she has had some chest tightness. Her chest pain is worse with coughing Denies any fevers, chills. He has been using her nebulizer machine without significant improvement She rates her discomfort as 7 in 10, achy. The patient received aspirin 325 mg dose of nitroglycerin sublingual spray EN route via EMS She denies any personal history of coronary artery disease Related Data Previous Rx's Medication Instructions Recorded miscellaneous medical supply #1 ea 09/15/20 miscellaneous medical supply #1 ea 01/05/21 crutches (pair of crutches) #1 ea 04/06/21 ibuprofen 800 mg tablet (IBU) 800 mg PO TID PRN pain 90 days 05/09/21 #270 tabs clonidine HCl 0.1 mg tablet 0.1 mg PO TID 90 days #270 tabs 03/14/22 diphenhydramine HCl 50 mg capsule 50 mg PO Q6H PRN for allergies 03/14/22 #120 caps fluticasone propionate 50 1 inh PO Q12H #180 caps 03/14/22 mcg/actuation blister powder for inhalation (Flovent Diskus) ipratropium 0.5 mg-albuterol 3 mg 3 ml inhalation Q4-6H PRN for 03/14/22 (2.5 mg base)/3 mL nebulization dyspnea 30 days #180 mL soln pravastatin 20 mg tablet 20 mg PO DAILY 90 days #90 tabs 03/14/22 topiramate 100 mg tablet 100 mg PO BID 90 days #180 tabs 03/14/22 albuterol sulfate 90 mcg/actuation 2 puff PO Q6H PRN shortness of 03/15/22 aerosol inhaler (Ventolin HFA) breath or wheezing 1 month #8.5 grams azithromycin 250 mg tablet 250 mg PO DAILY 4 days #4 tabs 10/02/22 prednisone 20 mg tablet 40 mg PO DAILY #10 tabs 10/02/22 Allergies Allergy/AdvReac Type Severity Reaction Status Date / Time seafood Allergy Unknown difficulty Verified 03/14/22 13:38 breathing SEASONAL ALLERGIES Allergy Unknown ITCHY EYES Uncoded 03/14/22 13:38 Review of Systems Constitutional: Constitutional: Reports as per HPI, Denies fever(s) and Reports headache(s) ENT: Reports otalgia, Reports headache(s), Reports nasal congestion, Reports nasal discharge, Reports post nasal drip and Denies sore throat Cardiovascular: Cardiovascular: Reports chest pain (With coughing) Respiratory: Respiratory: Denies cough Gastrointestinal: Gastrointestinal: Denies abdominal pain, Denies constipation and Denies vomiting Genitourinary: Genitourinary: Denies dysuria Neurologic: Reports headache(s) and Denies focal weakness [facility] Past Medical History Medical History Asthma Asthma Surgical History History of carpal tunnel release History of hernia repair History of rotator cuff surgery History of shoulder surgery Family History Family History Father Diabetes mellitus Unknown family medical history Mother Unknown family medical history HTN (hypertension) Brother No problems noted. Brother No problems noted. Brother No problems noted. Daughter No problems noted. Sister No problems noted. Sister No problems noted. Sister No problems noted. Sister No problems noted. Sister No problems noted. Other Mental health disorder Substance abuse Social History Social History Housing: Other Alcohol intake: never Patient Tobacco Use Status: Never used Tobacco Smoked in Last 30 Days: Yes Use of substances other than those prescribed or required for medical reasons: Yes Substance Use Type: Marijuana Advance Directives: No Advance Directives Information Provided: Yes Patient : No service: No Current occupational status: employed Physical Exam ED Vital Signs: Vital Signs - 24 hr 10/02/22 00:02 10/02/22 00:11 10/02/22 00:46 Temperature 98.5 F 98.5 F Pulse Rate 66 66 74 Respiratory Rate 12 12 22 H Blood Pressure 169/87 H 169/87 H Pulse Oximetry 99 99 Oxygen Delivery Method Room Air Room Air BMI result Body Mass Index 25.2 Const General: healthy appearing, comfortable, no acute distress, alert and awake Nutritional Appearance: well nourished Orientation/consciousness: patient oriented x3 HENMT Head: Yes normocephalic and Yes atraumatic Throat: Yes posterior oropharynx normal Eyes Eyelids: Yes eyelids normal Conjunctivae: conjunctivae normal Sclerae: sclerae normal Corneas: corneas normal Pupils: Equal, round and reactive pupils present EOM: EOMs intact bilaterally Neck Neck: Yes full ROM Resp Effort & Inspection: normal respiratory effort, able to speak in complete sentences and not labored Auscultation: wheezes (mild expiratory wheeze throughout) Cardio Rate: regular rate Rhythm: regular rhythm GI Inspection: No distended Palpation (GI): Soft to palpation, not firm, nontender, no guarding and not rigid Auscultation: normoactive bowel sounds Skin General skin exam: no rashes or lesions noted and elasticity normal Neuro General: patient oriented x3 Cranial nerves: Yes CN's II-XII intact bilaterally, Yes Equal, round and reactive pupils present and Yes Bilaterally intact EOM present Cognition (Neuro): normal cognition Extrem Other: Moving all extremities well without any obvious deformities Course Reevaluation(s) Reevaluation #1: Patient reports feeling better after treatment, chest x-ray is without significant abnormality, no focal infiltrate. EKG without ischemic changes or arrhythmia. Patient remains stable in will discharge patient with azithromycin and prednisone Time: 01:47 Medications Administered Discontinued Medications Generic Name Dose Route Start Last Admin Trade Name Freq PRN Reason Stop Dose Admin Albuterol Sulfate 2.5 mg/ 0 mg 10/02/22 00:30 10/02/22 00:43 Albuterol/Ipratropium 3 ml INHALE 10/02/22 00:31 1 each ONCE ONE Administration Magnesium Sulfate/Dextrose 1 gm in 100 mls @ 100 mls/hr 10/02/22 00:30 10/02/22 01:14 Magnesium Sulfate/D5w IV 10/02/22 01:29 100 mls/hr ONCE ONE Administration Methylprednisolone Sodium Succinate 125 mg 10/02/22 00:30 10/02/22 01:14 Methylprednisolone Sod Succ 125 Mg/2 Ml Vial IVPUSH 10/02/22 00:31 125 mg ONCE ONE Administration Medical Decision Making Medical Decision Making [facility] Narrative: Patient has flu-like symptoms with ear pain, sinus congestion, postnasal drip, sore throat, cough. This all makes ACS much less likely. EKG will be obtained. The patient's only risk factor for ACS is hyperlipidemia. Will consider labs and troponin if the patient's EKG is abnormal, however her chest pain is most likely related to viral etiology is pneumonia versus bronchitis.. Reviewed the patient's shortness of breath, wheezing, cough with Solu-Medrol, DuoNeb, magnesium. Will re-evaluate Differential Diagnosis Bronchitis Chest wall pain Costochondritis Pneumonia Independent Interpretation I performed an independent interpretation of an: EKG (Normal sinus rhythm rate of 70 beats per minute. No ST segment elevation or depressions.) Discharge Plan Discharge Clinical Impression: Asthma exacerbation Patient Disposition: Home, Self-Care Instructions: Asthma (ED) Additional Instructions: Take azithromycin daily starting tomorrow as your 1st dose was given today. Take prednisone as directed Your chest x-ray did not show any evidence of pneumonia Prescriptions: New azithromycin 250 mg tablet 250 mg PO DAILY 4 Days Qty: 4 0RF Rx Instructions: start on day 2 of therapy prednisone 20 mg tablet 40 mg PO DAILY Qty: 10 0RF No Action (DME[place] [facility] [place] .MEDSUPPLY Qty: 1 0RF Rx Instructions: Shower bar/hand rail. As directed, daily, 999days/life time. (DME) pair of crutches Kit See Rx Instructions .ROUTE .MEDSUPPLY Qty: 1 0RF Rx Instructions: Forearm Crutches. Daily, As directed. 999 days. 1 Pair ibuprofen [IBU] 800 mg tablet 800 mg PO TID PRN (Reason: pain) 90 Days Qty: 270 4RF (DME) [place] [facility] [place] [facility] [place] .MEDSUPPLY Qty: 1 0RF Rx Instructions: Arm Crutches. Daily As directed, 999days/lifetime. Dispense 1 pair clonidine HCl 0.1 mg tablet 0.1 mg PO TID 90 Days Qty: 270 4RF diphenhydramine HCl 50 mg capsule 50 mg PO Q6H PRN (Reason: for allergies) Qty: 120 1RF Flovent Diskus 50 mcg/actuation blister with device 1 inh PO Q12H Qty: 180 1RF ipratropium-albuterol 0.5 mg-3 mg(2.5 mg base)/3 mL solution for nebulization 3 ml inhalation Q4-6H PRN (Reason: for dyspnea) 30 Days Qty: 180 4RF topiramate 100 mg tablet 100 mg PO BID 90 Days Qty: 180 4RF pravastatin 20 mg tablet 20 mg PO DAILY 90 Days Qty: 90 4RF albuterol sulfate [Ventolin HFA] 90 mcg/actuation HFA aerosol inhaler 2 puff PO Q6H PRN (Reason: shortness of breath or wheezing) 30 Days Qty: 8.5 4RF
--- OUTSIDE RECORDS SUMMARY | 2022-10-02 01:07 | XMS_ITS | Continuity of Care Document ---
Author Name Unknown Organization [facility] Address [address] [place] [id number] Care Team Providers Care Online Merchandising Specialist Name Role Phone Not on Staff, PCP Primary Care Physician Unavail able [place] [facility] [place] 12/04/[address] [id number]- Discharge Disposition: A-D/C Home Attending Physician: George Santana DO Admitting Physician: George Santana DO Referring Physician: Not on Staff, Referring MD Results Radiology Reports * Exam Date Time Procedure Performing Provider Status 12/03/21 5:08 PM Chest Portable Amanda Resendiz; Teresita (Verified) Notes: (Chest Portable) Reason For Exam: Other: RESULT: Chest Portable Examination: Portable chest performed on 12/03/2021. History: Trauma. Findings: A frontal view of the chest is submitted without comparison. The cardiac and mediastinal silhouettes are within normal limits. The lungs are clear. The osseous and soft tissue structures are unremarkable. IMPRESSION: There is no acute cardiopulmonary disease. WSN: [id number] Ordering Physician: Laura Aden Dictated By: Devorah Weinstein MD Dictated Date/Time: 12/03/21 5:15 pm Reviewed By: Devorah Weinstein MD Signed By: Devorah Weinstein MD Signed Date/Time: 12/03/21 5:15 pm Transcribed By: LIZY Transcribed Date/Time: 12/03/21 5:15 pm Vital Signs Most recent to oldest [Reference Range]: 1 2 3 Oxygen Saturation [94-100 %] 97 % (12/04/21 4:45 AM) 97 % (12/04/21 2:30 AM) 98 % (12/04/21 12:58 AM) Pulse Rate [55-90 bpm] 94 bpm *H* (12/04/21 4:45 AM) 98 bpm *H* (12/04/21 2:30 AM) 94 bpm *H* (12/04/21 12:58 AM) Blood Pressure [90-138/55-84 mm Hg] 145/68mm Hg *H* (12/04/21 4:45 AM) 150/70mm Hg *H* (12/04/21 2:30 AM) 158/72mm Hg *H* (12/04/21 12:58 AM) Respiratory Rate [16-30 br/min] 17 br/min (12/04/21 4:45 AM) 17 br/min (12/04/21 2:30 AM) 15 br/min *L* (12/04/21 12:58 AM) Temperature [96.8-100.4 DegF] 97.6 DegF (12/04/21 12:58 AM) Mode of Delivery (Oxygen) Room air (12/04/21 4:45 AM) Room air (12/04/21 2:30 AM) Room air (12/04/21 12:58 AM) Temperature Route Oral (12/04/21 12:58 AM)
[2022-10-02] MEDS: Magnesium Sulfate/D5W 1 GM/100 ML PIGGYBACK IV (01:14)
[2022-10-02] MEDS: methylPREDNISolone Sod Succ 125 MG/2 ML VIAL IVPUSH (01:14)
[2022-10-02] MEDS: Azithromycin 500 MG TABLET PO (02:00)
--- NOTE | 2022-10-02 02:07 | PC.NURSE ---
Discharge instructions given and explained to the patient's parents Patient is able to ambulate safely/independently No respiratory distress, no sob , able to speak in full sentences [id number] IV cath intact upon removal IV from EMS
[2022-10-02 02:15] LABS: Influenza A PCR NEGATIVE (Negative); Influenza B PCR NEGATIVE (Negative); Resp Syncy Virus RNA Qual PCR NEGATIVE (Negative); SARS COV2 PCR INHOUSE NEGATIVE (Negative)
== END 2022-10-02 02:06 | disposition home or self-care (01) ==
PROVIDERS: Physician Assistant; Emergency Provider Emergency Medicine; PCP Family Medicine
DX: J45.901 Unspecified asthma with (acute) exacerbation (principal); R06.02 Shortness of breath; E86.0 Dehydration; G89.29 Other chronic pain; Z20.822 Contact with and (suspected) exposure to COVID-19; Z20.828 Contact with and (suspected) exposure to other viral communicable diseases; Z79.899 Other long term (current) drug therapy
CPT/HCPCS: 0241U; 71046; 93005; 94640; 96374; 96375; 99284; 99285; J2930; J3475